=== PATIENT | female | born 1990 | race Caucasian/White ===

== ENCOUNTER 2017-10-08 10:10 | Inpatient (IN) | payer MEDICAID, SELFPAY ==
[2017-10-06 13:17] VITALS: BMI 27.5
[2017-10-06 15:08] LABS: Hematocrit 36.4 % (37-47); Hemoglobin 11.8 g/dl (12.0-15.0); Mean Corp Hgb Conc 32.4 g/gl (32-36); Mean Corpuscular Hgb 29.3 pg (27.0-32.0); Mean Corpuscular Volume 90.3 fL (81-99); Mean Platelet Vol. 10.7 fl (6.2-12.0); Platelet Count 193 K/mm3 (150-450); RBC Distribution Width CV 14.3 % (11.6-14.6); Red Blood Count 4.03 M/mm3 (4.2-5.4); White Blood Count 11.4 K/mm3 (4.4-11.0)
[2017-10-06 15:12] LABS: Scan Indicated on CBC? Y/N NO
[2017-10-08] VITALS (18 sets, daily range): BP systolic 94–116; BP diastolic 52–75; PULSE 77–98; RESP 12–20; TEMP 36.2–37; O2SAT 96–100
[2017-10-08] MEDS: Lactated Ringers 1,000 ML 999 ML IV (10:20)
[2017-10-08] MEDS: Lactated Ringers 1,000 ML 150 ML IV (11:26)
[2017-10-08 11:29] LABS: International Normalized Ratio 1.1; Partial Thromboplast Time 25.2 Seconds (24.1-36.2); Prothrombin Time (Protime)PT. 13.3 SECONDS (11.7-14.9)
[2017-10-08] MEDS: Sodium Citrate/Citric Acid 30 ML UDC PO (11:44)
[2017-10-08] MEDS: Clindamycin 900 MG/50 ML BAG 75 MG IV (12:04)
[2017-10-08] MEDS: Oxytocin 30 units/NS 500 ml 30 UNITS/500 ML IV.SOLN 167 UNITS IV (12:23)
--- NOTE | 2017-10-08 12:58 | OP.PCM_ITS ---
Delivery Classification: Scheduled Final LEENA: 10/14/17 Final LEENA Source: US <20 weeks Gestational age: 39 Weeks and 1 Days Indications: Previous delivery x 2 Description of Procedure: Normal appearing uterus, ovaries and fallopian tubes. Live male in vertex presentation. Apgars 8/9. Normal appearing placenta. Amniotic fluid clear. Amniotic Membrane Rupture Type: Artificial Amniotic Fluid Description: Clear Placenta Disposition: [facility] Drain: [place] to straight drain Fluids Replaced: 1500cc Cord Entanglement: None Cord Vessel Description: 3 Vessels Esitmated Blood Loss (ml): 400 Gender: Male (1 minute): 8 (5 minute): 9 Delayed cord clamping: Yes Pre-op Antibiotic Given: Clindamycin 600mg IV x1 and Gentamicin 1.5mg/kg IV x1 Pt instructed on risks of surgery: Bleeding, Infection, Failure Rate of 1 to 2% , Injury to surrounding structure(s) including bowel and bladder Complications: None - Admit VTE Documentation VTE Present on Admission: No VTE Mechan Device Prophylaxis: SCD's VTE Pharm Prophylaxis ordered?: No
--- NOTE | 2017-10-08 13:24 | FALS_PTH ---
PATIENT: JEROME ONTIVEROS LOC: [facility] U#:[id number] AGE/SX: 27/F ROOM: WP005 RE10/08/[address]: Dr. Ari Silva MD : 1990 BED: 1 DIS: 10/10/2017 SPEC #: [id number] RECD: 10/08/17 14:10 STATUS: LEON RESidney #: [id number] ALICIA: 10/08/17 13:[address]: Ari Silva DEPT: SURGICAL PATHOLOGY RECD BY: Susanna Payne ENTERED: 10/08/17 14:53 SP TYPE: FALL TUBES OTHR DR: Galina Primary Care Phys Tissues: Fallopian tube Procedures: Surgery Specimen Level II HEADER OPERATION: Tubal ligation PRE-OP DIAGNOSIS: Tubal ligation TISSUE SUBMITTED: Fallopian tubes MICROSCOPIC DIAGNOSIS Right and left fallopian tubes, bilateral partial salpingectomies: Complete segments of right and left fallopian tubes with no significant pathologic change. AM:babak 10/09/17 MICROSCOPIC DESCRIPTION Slides are reviewed. GROSS DESCRIPTION Received is one container labeled with the patient's name and designated suture in right. The specimen consists of two fallopian tubes including fimbrial ends. The right fallopian tube with suture measures 6.5 cm in length and 0.5 cm in diameter. The left fallopian tube measures 6 cm in length and 0.6 cm in diameter. Sections reveal unremarkable cut surfaces. School Photograph Editor sections are submitted in two cassettes as follows: 1 ? right fallopian tube, 2 ? left fallopian tube. / CHANTAL:babak 10/08/17 TC:5 CPT: 27217 x2
--- NOTE | 2017-10-08 15:24 | DCINST_ITS ---
Discharge Diet: No Restrictions Discharge Activity: Return to Normal Activity, May Not Drive, May not drive while taking narcotic pain medications., May Shower Return to work on:: 12/07/17 May shower in (days): 0 May resume sexual activity in: 4-6 weeks Call your doctor if your incision/area has: Sudden Increased Bleeding, Increased Pain/ Swelling, Increased Redness, Foul Smelling Discharge, Swelling at the incision site Call your doctor if you observe: Fever of 101 or Higher, Inability to urinate, Inability to have a bowel movement, Using more than one pad per hour, Shortness of breath, Swelling in the ankles, Chest pain, Calf discomfort, Uncontrolled pain Remove Dressing in (days):: 2 Cleanse incision/area with: Soap & Water Additional Instructions: If you experience any of the following, contact your healthcare provider. * Bleeding that soaks a pad every hour for 2 hours * Fever 100.4 or higher * Unrelieved incision or abdominal pain * Swelling, redness, discharge or bleeding from your incision or episiotomy site * Your incision begins to separate * Problems urinating (including inability to urinate or burning while urinating) . * Visual changes * Severe headache * Flu-like symptoms * Pain or redness in one of both of your breasts * Pain, warmth, tenderness or swelling in your legs, especially the calf area * Frequent nausea and vomiting * Symptoms of depression or anxiety If you experience any of the following, call 911 or go to the nearest Emergency Room. * Chest pain * Problems breathing * Seizure activity * Partial or complete paralysis of a body part, slurred speech, weakness or drooping of the face, or a sudden inability to walk or hold your balance Allergies/Adverse Reactions: Allergies divalproex sodium [From Depakote] Allergy (Verified 10/06/17 13:22) Hives Penicillins Allergy (Verified 10/06/17 13:22) Unknown rofecoxib [From Vioxx] Allergy (Verified 10/06/17 13:22) Other halucinations Sulfa (Sulfonamide Antibiotics) Allergy (Verified 10/06/17 13:22) Swelling topiramate [From Topamax] Adverse Reaction (Verified 10/06/17 13:22) Other agitation kale Allergy (Uncoded 10/06/17 13:22) Swelling pistachios Allergy (Uncoded 10/06/17 13:22) Swelling tomatoes Allergy (Uncoded 10/06/17 13:22) Hives Medications to take at Discharge Vits [Prenatabs FA ] 1 tablet PO DAILY 12/19/14 Cyclobenzaprine [Flexeril] 10 mg PO PRN PRN 10/06/17 Ibuprofen [Motrin] 800 mg PO TID PRN PRN 7 Days #30 tab 10/08/17 Oxycodone [Oxyir] 5 - 10 mg PO Q4H PRN PRN 7 Days #28 tab 10/08/17 The following prescriptions were given: Oxycodone [Oxyir] 5 - 10 mg PO Q4H PRN PRN 7 Days #28 tab PRN Reason: Mod-Severe Pain (-06/09) Ibuprofen [Motrin] 800 mg PO TID PRN PRN 7 Days #30 tab PRN Reason: Pain Follow-Up: Call to make an appointment with your doctor for an incision check in 1-2 weeks. You will also need a 6 week post- follow up appointment. Please Follow Up With: Ari Silva MD When: one week Primary Care Physician: Care Physician,No Primary [Primary Care Provider] - Proposed Discharge Date: 10/10/17
--- NOTE | 2017-10-08 15:24 | PCM.OPRPT ---
Problem List (1) Previous section complicating Status: Chronic (2) Encounter for sterilization Status: Chronic Report of Operation Date of Procedure: 10/08/17 Pre-Operative Diagnosis: Previous section x 2, Requests permanent sterilization Post-Operative Diagnosis: Same Surgery/Procedure Performed:: Repeaty low transverse section, bilateral salpingectomy Description of Surgical Findings:: Normal appearing uterus, ovaries, and fallopian tubes. Live male in vertex presentation. Amniotic fluid clear. Normal appearing placenta. Apgars 8/9. senior strategy analyst: Eliot Baez Type of Anesthesia:: Epidural Anesthesiologist: Danial Dyer Special Medications: none Specimen's removed: right and left fallopian tubes Drains: jones Estimated Blood Loss (mL): 400 Fluids Replaced: 1500cc Description of Procedure: Willa was taken tot he OR with IV running. She was given 900mg of clindamycin and gentamicin IV prior to her procedure. Spinal anesthesia was introduced without complication. She was then prepped and draped in the supine position with a leftward displacement. A jones catheter was placed without complication. Once anesthesia was deemed adequate a Pfannensteil skin incision was made over the previous scar. The underlying subcutaneous tissue was dissected down to the level of fascia using the Bovie cautery. The fascia was then incised inthe the midline. This incision was extended bilaterally with the Jeff scissors. The upper portion of the fascial defect was then grasped with two Mathew clamps elevated and the rectus muscles dissected off with sharp and blunt dissection. In a similar fashion the rectus muscles were dissected off the lower fascial defect. The rectus muscles were then in the midline, the peritoneum identified and entered sharply. The peritoneal defect was extended using sharp and blunt dissection.l A bladder blade was then placed. The cervicovesico peritoneum was then entered sharply and this incision was extended bilaterally. A bladder flap was then created wusing sharp and blunt dissection. The bladder blade was replaced. A transverse incision was then made in the lower uterine segement. Once entered, this defect was extended using blunt lateral and superior traction. The membranes were then ruptured with clear fluid noted. The baby's head was then delivered atraumatically followed by the body. The baby's nose and mouth were then suctioned with a bulb suction. Delayed cord clamping was employed. There was an active cry shortly after delivery. The cord was then clamped and cut. The baby was handed to the waiting nursing staff for evaluation. The placenta was removed manually and the uterus was exteriorized. The uterine cavity was cleared of all clot and membranes. The uterine incision was then closed in two layers with #1 Vicryl suture. The right fallopian tube was then grasped with a Gilmar clamp elevated. A rent was made in the mesosalpinx and the mseosalpinx was grasped with two Coni clamps. The mesosalpinx was then cut and suture ligated. The tube was then amputated at the cornua. In a similar fashion the left fallopian tube was removed. The posterior cul de sac and gutters were cleared of all clot and fluid. The uterus returned to the abdomen. All pedicle sites were inspected and found to be hemostatic. The peritoneum was then closed with 2-0 Vicryl. The rectus muscles were reapproximated with interrupted sutures of 0-Vicryl. The fascia was closed with a running stitch of #1 Stratofix suture. The subcutaneous tissue was closed with 2-0 Vicryl. The skin was closed in a subcuticular fashion with 4-0 Monocryl. Sponge lap and needle counts were correct. She was taken to the recovery room in stable condition. Grafts/Implants Used: none - Complications none - Admit VTE Documentation VTE Present on Admission: No VTE Mechan Device Prophylaxis: SCD's VTE Pharm Prophylaxis ordered?: No
[2017-10-08] MEDS: DiphenhydrAMINE 25 MG Capsule PO (16:55)
[2017-10-08] MEDS: Lactated Ringers 1,000 ML 100 ML IV (17:43)
[2017-10-08] MEDS: Clindamycin 600 MG/50 ML BAG 100 MG IV ×2 (18:05→23:37)
[2017-10-08] MEDS: Ketorolac 30 MG/ML Syringe IV (19:06)
[2017-10-08] MEDS: 0.9% Saline Lock 10 ML Syringe IV (19:06)
[2017-10-09] VITALS (9 sets, daily range): BP systolic 106–116; BP diastolic 57–71; PULSE 77–91; RESP 16–18; TEMP 36.5–37.2; O2SAT 97–99
[2017-10-09] MEDS: Ketorolac 30 MG/ML Syringe IV ×4 (00:54→22:26)
[2017-10-09] MEDS: Acetaminophen 500 MG Tablet 1000 MG PO (05:48)
[2017-10-09 07:17] LABS: Hematocrit 29.2 % (37-47); Hemoglobin 9.6 g/dl (12.0-15.0); Mean Corp Hgb Conc 32.9 g/gl (32-36); Mean Corpuscular Hgb 29.6 pg (27.0-32.0); Mean Corpuscular Volume 90.1 fL (81-99); Mean Platelet Vol. 10.5 fl (6.2-12.0); Platelet Count 146 K/mm3 (150-450); RBC Distribution Width CV 14.3 % (11.6-14.6); Red Blood Count 3.24 M/mm3 (4.2-5.4); Scan Indicated on CBC? Y/N NO; White Blood Count 10.4 K/mm3 (4.4-11.0)
--- NOTE | 2017-10-09 08:51 | PCM.PN.OB ---
Subjective: Some soreness at incision but overall doing well. Breast feeding. Bleeding light. Objective: Afeb VSS Hgb stable Urine output adequate - Physical Exam General: Alert, Oriented x3, Cooperative, No apparent distress Lungs: Clear to auscultation, Normal air movement Cardiovascular: Regular rate, Regular Rhythm Abdomen: Soft, Non-Distended, - - Fundus firm. Appropriate tenderness. Incision dressing dry. Extremities: No edema, No Calf Tenderness Skin: No rashes Psych/Mental Status: Normal Affect Comment: Lochia light Vital Signs Temp Pulse Resp BP Pulse Ox 97.7 F L 87 16 110/60 99 10/09/17 05:17 10/09/17 06:00 10/09/17 06:00 10/09/17 05:17 10/09/17 06:00 Oxygen Delivery Method Room Air Weight: 165 lb 9.074 oz Body Mass Index (BMI) 27.5 Intake and Output for Last 24 Hours 10/07/10/08/17 10/09/17 23:59 23:59 23:59 Intake Total 3476 / 3476 1988 / 1988 Output Total 900 / 900 1800 / 1800 Balance 2576 / 2576 189 / 189 Laboratory Tests Past 24 Hrs 10/08/17 10/09/17 11:09 06:55 WBC 10.4 RBC 3.24 L Hgb 9.6 L Hct 29.2 L MCV 90.1 MCH 29.6 MCHC 32.9 RDW 14.3 RDW Differential 47.0 H Plt Count 146 L MPV 10.5 PT 13.3 INR 1.1 APTT 25.2 Assessment/Plan Doing well on POD#1. Continue routine PO care.
[2017-10-09] MEDS: oxyCODONE 5 MG Tablet PO (20:03)
[2017-10-09] MEDS: 0.9% Saline Lock 10 ML Syringe IV (22:26)
[2017-10-10 01:45] VITALS: BP 113/60; PULSE 77; RESP 17; TEMP 36.4; O2SAT 94
[2017-10-10] MEDS: oxyCODONE 5 MG Tablet PO ×4 (01:47→18:10)
[2017-10-10] MEDS: 0.9% Saline Lock 10 ML Syringe IV (04:34)
[2017-10-10] MEDS: Ibuprofen 600 MG Tablet PO ×2 (04:44→14:41)
[2017-10-10 08:02] VITALS: BP 110/67; PULSE 91; RESP 16; TEMP 36.7; O2SAT 94
--- NOTE | 2017-10-10 08:16 | NURSING ---
PATIENT HAS 30-DAY EVENT MONITOR THAT WAS PRESCRIBED ON AN OUTPATIENT BASIS. NO REPORTS OF SHORTNESS OF BREATH, PALPITATIONS, OR CHEST PAIN AT THIS TIME. WILL CONTINUE TO MONITOR.
--- NOTE | 2017-10-10 09:37 | CASEMGMT ---
Social Work Note JUAN J reports to live with her spouse and two daughter's (ages 5 and 2.5 yrs). They rent a 4 bedroom farmhouse that is within 5 minutes of JUAN J's parents and grandparents. She identifies her primary supports as her spouse Naveed, and her mother. 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 She reports graduating high school and some college, denies issues with reading or writing. Confirms that they have necessary supplies for to return home including crib, car seat, clothes, diapers, and bottles. Denies issues obtaining supplies. 's human resource internship is Dr. Christal Sandy. JUAN J has not setup an appointment, but states she will. Other two children also go to Dr. Sandy and she knows how to contact her. Confirms access to transportation for appointments. Substance Abuse Hx and Current Pattern of Use: Alcohol: No Methamphetamine: No Tobacco: No Cocaine: No Marijuana: Yes Prescription Drugs: No Heroin: No Other: No Treatment? No MOB reports hx of marijuana use. Denies any use during this . Had a CSB case opened in the past for using during second early on. Educate to concerns with marijuana use while breast feeding and understanding expressed. No positive tox screen on admission. Mental Health Hx and Current Status: Diagnoses: PTSD, Anxiety, Panic DO Stressors: New baby, adjustment SI or HI? No Treatment: Yes When? Current Where? [facility] Medications: None JUAN J reports hx of mental health diagnoses as listed above. She goes to counseling at [facility] in [place]. Her last visit was in August d/t weather per her report. Denies hx of pp depression. Educate pt to pp depression and increased likelihood of experiencing with her mental health history. Review signs/symptoms and recommend seeking assistance from her OBGYN or counseling if symptoms begin to occur. She has already discussed medication options with Dr. Wall post for mood stabilization. Reports that she feels her mental health is well managed and her coping skills include crafting, reading poetry, and journaling. JUAN J has appropriate supports in place, no further needs identified. Resources: JFS:Medicaid, Applying for Food [place] Intervention: Assessment complete to identify needs. Education, support and resources provided to pt for [facility], as well as PP Depression education. JUAN J is linked with a counselor and already speaking with OBGYN regarding medication if needed. All supplies for infant are obtained and there is a safe environment to return to. No further needs and anticipate discharge this date. JACKIE PonceW
[2017-10-10] MEDS: Senna/Docusate Sodium 1 Tablet PO (11:24)
--- NOTE | 2017-10-10 12:15 | PCM.PN.OB ---
Subjective: Patient without complaints. Tolerating diet well but bowels still denies flatus. Would like to stay another day. - Physical Exam Vital Signs AF, VSS Temp Pulse Resp BP Pulse Ox 98.1 F 91 16 110/67 94 10/10/17 08:02 10/10/17 08:02 10/10/17 08:02 10/10/17 08:02 10/10/17 08:02 Oxygen Delivery Method Room Air Weight: 165 lb 9.074 oz Body Mass Index (BMI) 27.5 Intake and Output for Last 24 Hours 10/08/17 10/09/17 10/10/17 23:59 23:59 23:59 Intake Total 3476 / 3476 2727.2 / 2727.2 Output Total 900 / 900 3450 / 3450 Balance 2576 / 2576 -722.8 / -722.8 Wound is clean, dry, intact. Good urine output. Assessment/Plan Doing well. Encouraged to minimize use of narcotic pain medications. Continuing present care.
[2017-10-10 14:40] VITALS: BP 111/62; PULSE 86; RESP 14; TEMP 37
[2017-10-12 16:14] LABS: Pathology Specimen OB SEE PATHOLOGY REPORT
--- NOTE | 2017-10-14 12:00 | PCM.DC.SUM ---
Discharge Date and Diagnosis Date of Admission: 10/08/17 Date of Discharge: 10/10/17 - Primary Discharge Diagnosis s/p repeat C/S bilateral salpingectomy - Secondary Discharge Diagnosis Chronic Problems Previous section complicating (Chronic) Encounter for sterilization (Chronic) Hospital Course and Treatment Operations: - - Repeat LTCS, bilateral salpingectomy Summary of Care Provided: The patient is a 27 year old F [admitted for scheduled term repeat C/S and bilateral salpingectomy. These were performed without complication with delivery of a live without complication. Post operative course unremarkable. Discharged home on POD#2.] Discharge Diet: No Restrictions Discharge Activity: Return to Normal Activity, May Not Drive, May not drive while taking narcotic pain medications., May Shower Return to work on:: 12/07/17 May shower in (days): 0 May resume sexual activity in: 4-6 weeks Call your doctor if your incision/area has: Sudden Increased Bleeding, Increased Pain/ Swelling, Increased Redness, Foul Smelling Discharge, Swelling at the incision site Call your doctor if you observe: Fever of 101 or Higher, Inability to urinate, Inability to have a bowel movement, Using more than one pad per hour, Shortness of breath, Swelling in the ankles, Chest pain, Calf discomfort, Uncontrolled pain Remove Dressing in (days):: 2 Cleanse incision/area with: Soap & Water Home Medications: Medications to take at Discharge Vits [Prenatabs FA ] 1 tablet PO DAILY 12/19/14 Cyclobenzaprine [Flexeril] 10 mg PO PRN PRN 10/06/17 Ibuprofen [Motrin] 800 mg PO TID PRN PRN 7 Days #30 tab 10/08/17 Oxycodone [Oxyir] 5 - 10 mg PO Q4H PRN PRN 7 Days #28 tab 10/08/17 Following Prescrptions Were Given to Patient: Oxycodone [Oxyir] 5 - 10 mg PO Q4H PRN PRN 7 Days #28 tab PRN Reason: Mod-Severe Pain (4-10/10) Ibuprofen [Motrin] 800 mg PO TID PRN PRN 7 Days #30 tab PRN Reason: Pain Primary Care Physician: Care Physician,No Primary [Primary Care Provider] - Please Follow Up With: Ari Silva MD When: one week Disposition: Home Minutes spent on discharge:: 15 Patient Condition:: Good Meaningful Use Info Meaningful Use Diagnoses (Choose all that apply): None applicable
== END 2017-10-10 19:20 | disposition home or self-care (01) | DRG 371 ==
PROVIDERS: Admitting Provider Obstetrics & Gynecology; Visit Provider Obstetrics & Gynecology
DX: O34.211 Maternal care for low transverse scar from previous cesarean delivery (principal); F32.9 Major depressive disorder, single episode, unspecified; O99.344 Other mental disorders complicating childbirth; J45.909 Unspecified asthma, uncomplicated; Z30.2 Encounter for sterilization; Z79.899 Other long term (current) drug therapy; Z3A.39 39 weeks gestation of pregnancy; Z37.0 Single live birth
CPT/HCPCS: 85027; 85610; 85730; 86850; 86900; 88302; 99218; J7120; 90686; A4216; G0378

== ENCOUNTER → 2017-12-22 09:10 | Outpatient (CLI) | payer MEDICAID, SELFPAY ==
[2017-12-22 09:52] LABS: ALB/GLOB Ratio 1.5 RATIO (0.9-2.4); AST(SGOT) 11 U/L (15-37); Alanine Aminotransfer ALT/SGPT 20 U/L (13-56); Albumin, Serum 4.4 g/dL (3.2-5.0); Alkaline Phosphatase 78 U/L (45-117); Anion Gap 6 (5-15); BUN 15 mg/dL (7-18); BUN/Creat Ratio 21.1 RATIO (10-20); Calcium,Total 8.7 mg/dL (8.5-10.1); Chloride 106 mmol/L (98-107); Creatinine, Serum 0.71 mg/dL (0.55-1.02); EST Glomerular Filtration Rate 103 mL/min (>60); Est Glom Filt Rate - Afr Amer 125 mL/min (>60); Globulin 2.9 g/dL (2.2-4.2); Glucose 88 mg/dL (74-106); Protein, Total 7.3 g/dL (6.4-8.2); Sodium Level 140 mmol/L (136-145)
[2017-12-22 09:58] LABS: hCG Titer Quant., Serum < 1 mIU/mL (<9 non-preg)
[2017-12-22 10:05] LABS: Hematocrit 39.5 % (37-47); Hemoglobin 12.6 g/dl (12.0-15.0); Mean Corp Hgb Conc 31.9 g/gl (32-36); Mean Corpuscular Hgb 28.1 pg (27.0-32.0); Mean Platelet Vol. 10.5 fl (6.2-12.0); Platelet Count 232 K/mm3 (150-450); RBC Distribution Width CV 13.7 % (11.6-14.6); RBC Distribution Width SD 43.4 fl (35.1-43.9); Red Blood Count 4.49 M/mm3 (4.2-5.4); White Blood Count 6.9 K/mm3 (4.4-11.0)
[2017-12-22 10:06] LABS: Scan Indicated on CBC? Y/N NO
--- NOTE | 2017-12-22 18:09 | PCM.TILTTABL ---
- Staff Staff: Marie Ferrer, - - Bonny Eddy - Summary Pre Test Resting HR: 66 - Alert and oriented: Warm and dry Pre Test Resting BP: 127/61 - Alert and oriented: Warm and dry Minimum Test HR: 75 - Alert and oriented: Warm and dry Maximum Test HR: 118 - Alert and oriented: Warm and dry Minimum Test BP: 114/74 - Alert and oriented: Warm and dry Maximum Test BP: 130/69 - Alert and oriented: Warm and dry Reason for Test Termination: Reached Maximum Test Time Physician Tilt Table Report - Patient's Physicians Primary Care Physician: Nikky Chowdary Heel Gummer: Dutch Doherty Indications/Diagnosis: Syncope Procedure Comments: The patient was brought to the tilt table laboratory and laid supine on the tilt table. The patient was alert and oriented and warm and dry. The baseline heart rate was 66 bpm with a baseline blood pressure 127/61 mmHg. The cardiac rhythm was normal sinus rhythm. The patient was placed in the 70 degree upright tilt table position for approximately 30 minutes. The patient remained alert and oriented and warm and dry. Minimal heart rate was 75 bpm with a minimal blood pressure of 114/74 mmHg with a maximal heart rate of 118 bpm and a maximal blood pressure of 130/66 mmHg. The cardiac rhythm was noted to demonstrate sinus rhythm as well as episodes appearing compatible with an underlying ectopic atrial rhythm and T wave abnormalities with notation of subsequent T wave inversion in leads II, III, aVF, and V3 through V6 with an isolated PVC with subsequent return to baseline in recovery. The patient had a variety of complaints during the head up tilt table examination with respect to feeling chest discomfort, shortness of breath, fatigue, lightheadedness, warmth, flushing, and chills. The patient did not lose consciousness. The patient was returned to the supine position. The patient remained alert and oriented and warm and dry. The concluding heart rate was 76 bpm with a concluding blood pressure 104/74 mmHg. The patient returned to baseline status prior to release from the tilt table laboratory. Summary: 70 degrees upright tilt table study stranding a combination of symptoms potentially compatible with vasovagal symptomatology however, considered negative for reproducible vasovagal/neurocardiogenic syncope.
[2017-12-22 18:18] VITALS: BP 114/74; BP 127/61; BP 130/69
--- NOTE | 2017-12-22 18:19 | TILTTABLE_ITS ---
- Staff Staff: Marie Ferrer, - - Bonny Eddy - Summary Pre Test Resting HR: 66 - Alert and oriented: Warm and dry Pre Test Resting BP: 127/61 - Alert and oriented: Warm and dry Minimum Test HR: 75 - Alert and oriented: Warm and dry Maximum Test HR: 118 - Alert and oriented: Warm and dry Minimum Test BP: 114/74 - Alert and oriented: Warm and dry Maximum Test BP: 130/69 - Alert and oriented: Warm and dry Reason for Test Termination: Reached Maximum Test Time Physician Tilt Table Report - Patient's Physicians Primary Care Physician: Nikky Chowdary Neonatal Intensive Care Nurse: Dutch Doherty Indications/Diagnosis: Syncope Procedure Comments: The patient was brought to the tilt table laboratory and laid supine on the tilt table. The patient was alert and oriented and warm and dry. The baseline heart rate was 66 bpm with a baseline blood pressure 127/61 mmHg. The cardiac rhythm was normal sinus rhythm. The patient was placed in the 70 degree upright tilt table position for approximately 30 minutes. The patient remained alert and oriented and warm and dry. Minimal heart rate was 75 bpm with a minimal blood pressure of 114/74 mmHg with a maximal heart rate of 118 bpm and a maximal blood pressure of 130/ 66 mmHg. The cardiac rhythm was noted to demonstrate sinus rhythm as well as episodes appearing compatible with an underlying ectopic atrial rhythm and T wave abnormalities with notation of subsequent T wave inversion in leads II, III , aVF, and V3 through V6 with an isolated PVC with subsequent return to baseline in recovery. The patient had a variety of complaints during the head up tilt table examination with respect to feeling chest discomfort, shortness of breath, fatigue, lightheadedness, warmth, flushing, and chills. The patient did not lose consciousness. The patient was returned to the supine position. The patient remained alert and oriented and warm and dry. The concluding heart rate was 76 bpm with a concluding blood pressure 104/74 mmHg. The patient returned to baseline status prior to release from the tilt table laboratory. Summary: 70 degrees upright tilt table study stranding a combination of symptoms potentially compatible with vasovagal symptomatology however, considered negative for reproducible vasovagal/neurocardiogenic syncope.
== END ==
PROVIDERS: Visit Provider Nurse Practitioner Acute Care
DX: R42 Dizziness and giddiness (principal)
CPT/HCPCS: 36415; 80053; 84702; 85027; 93660; J7030; A4216

== ENCOUNTER → 2018-10-21 09:35 | Outpatient (CLI) | payer MEDICAID, SELFPAY ==
--- NOTE | 2018-10-21 09:41 | MRI_ITS ---
STUDY: MRI CERVICAL SPINE WITHOUT CONTRAST REASON FOR EXAM: Female, 28 years old. paresthesia, pain , tremor, vertigo,falling. TECHNIQUE: Standardized fat and water weighted pulse sequences were obtained in the sagittal and axial planes. COMPARISON: None FINDINGS: Normal foramen magnum and brainstem-cervical cord junction. Normal craniovertebral junction. Normal anterior atlantoaxial articulation. Normal odontoid process. There is straightening of the normal cervical lordosis. C2-3: Normal endplates. Normal disc height, signal and morphology. Normal central canal and intervertebral neural foramina. C3-4: There is minimal disc space narrowing and endplate spondylosis. There is no significant disc herniation, central canal or foraminal stenosis. C4-5: There is mild disc space narrowing and endplate spondylosis. There is no significant disc herniation, central canal stenosis. Uncovertebral arthropathy with mild right and mild left foraminal stenosis. C5-6: There is minimal disc space narrowing and endplate spondylosis. There is no significant disc herniation, central canal or foraminal stenosis. C6-7: There is minimal disc space narrowing and endplate spondylosis. There is no significant disc herniation, central canal or foraminal stenosis. C7-T1: Normal endplates. Normal disc height, signal and morphology. Normal central canal and intervertebral neural foramina. Normal cervical cord. Normal visualized soft tissue structures. MRI/Spine Cervical (Routine) IMPRESSION: Mild degenerative changes. Electronically Signed: Jacqueline Wood MD at 10:07 EST Tel , Service support ,
== END ==
PROVIDERS: Referring Provider Clinical Nurse Specialist Acute Care; Visit Provider Clinical Nurse Specialist Acute Care
DX: R20.2 Paresthesia of skin (principal); R52 Pain, unspecified; R25.1 Tremor, unspecified
CPT/HCPCS: 72141

== ENCOUNTER → 2019-01-25 11:47 | Outpatient (CLI) | payer MEDICAID, SELFPAY ==
[2017-12-31 16:27] VITALS: BMI 23.3
[2019-01-25 14:10] LABS: Chlamydia Trachomatis by PCR Negative (Negative); Neisserai gonorrhoeae by PCR Negative (Negative); Probe Check PASS; Sample Adequacy Control PASS; Specimen Processing Control PASS
== END ==
PROVIDERS: Visit Provider Obstetrics & Gynecology
DX: R30.0 Dysuria (principal)
CPT/HCPCS: 87086; 87088; 87491; 87591

== ENCOUNTER → 2019-02-01 10:11 | Outpatient (CLI) | payer MEDICAID, SELFPAY ==
[2019-02-01 12:34] LABS: Chlamydia Trachomatis by PCR Negative (Negative); Neisserai gonorrhoeae by PCR Negative (Negative); Probe Check PASS; Sample Adequacy Control PASS; Specimen Processing Control PASS
== END ==
PROVIDERS: Visit Provider Obstetrics & Gynecology
DX: Z11.3 Encounter for screening for infections with a predominantly sexual mode of transmission (principal)
CPT/HCPCS: 87491; 87591

== ENCOUNTER → 2019-03-23 14:18 | Outpatient (CLI) | payer MEDICAID, SELFPAY ==
[2017-12-31 16:27] VITALS: BMI 23.3
[2019-03-29 14:04] LABS: HPV Reflexed? NOT INDICATED
== END ==
PROVIDERS: Visit Provider Obstetrics & Gynecology
DX: Z12.4 Encounter for screening for malignant neoplasm of cervix (principal)
CPT/HCPCS: 87624; 88175; G0145

== ENCOUNTER → 2019-04-01 10:58 | Outpatient (CLI) | payer MEDICAID, SELFPAY ==
--- NOTE | 2019-04-01 11:00 | BI_ITS ---
MAMMOGRAPHY - BILATERAL SCREENING REASON FOR EXAM: Female, 29 years old. Routine annual screening examination. PERTINENT HISTORY: Mother with breast cancer. Grandmother with breast cancer. TECHNIQUE: Digital bilateral breast jorge (3D mammographic acquisition) in the CC and MLO projections. 2-D mediolateral oblique (MLO) and craniocaudad (CC) views of both breasts were obtained. CAD: Full Field Digital Mammography with Computer Added Detection was performed. COMPARISON: None. Baseline examination. FINDINGS: Breast Composition: The breasts are heterogeneously dense, which may obscure small masses. There are no dominant masses or suspicious calcifications. Small bilateral benign appearing axillary lymph nodes. No other significant abnormalities are identified. BI/SCREEN MAMM (CAD) W/JORGE BILAT IMPRESSION: Negative screening mammogram. Yearly followup mammogram recommended. (A) ASSESSMENT CATEGORY: BIRADS Category 2: Benign. A letter regarding these results will be sent to the patient by the facility within 30 days. Approximately 10% of breast cancers are not detected by mammography. A normal mammogram should not delay biopsy of a clinically suspicious abnormality. [id number] Electronically Signed: Pedro Luis Yepez, at 13:30 EDT , Service support ,
== END ==
PROVIDERS: Referring Provider Obstetrics & Gynecology; Visit Provider Obstetrics & Gynecology
DX: Z12.31 Encounter for screening mammogram for malignant neoplasm of breast (principal); Z80.3 Family history of malignant neoplasm of breast
CPT/HCPCS: 77063; 77067

== ENCOUNTER → 2019-04-29 11:25 | Outpatient (REF) | payer MEDICAID, SELFPAY ==
[2019-04-29 10:21] VITALS: BMI 20.9
== END ==
LOC: CVS 11:25
PROVIDERS: Referring Provider Internal Medicine Cardiovascular Disease; Visit Provider Internal Medicine Cardiovascular Disease
DX: R42 Dizziness and giddiness (principal); R55 Syncope and collapse
CPT/HCPCS: 93270

== ENCOUNTER → 2019-04-29 11:55 | Outpatient (CLI) | payer MEDICAID, SELFPAY ==
[2019-04-29 10:21] VITALS: BMI 20.9
[2019-04-29 12:36] LABS: Absolute Lymphocyte Count 1.43 X10^3/uL (0.83-4.51); Absolute Neutrophil Count 4.8 X10^3/uL (2.0-7.7); Basophil# 0.04 X10^3/uL; Basophil% 0.6 % (0-1); Eosinophil# 0.09 X10^3/uL; Eosinophils% 1.3 % (0-5); Hematocrit 42.1 % (37-47); Hemoglobin 13.3 g/dL (12.0-15.0); Lymphocyte # 1.43 X10^3/ul (4.0); Lymphocyte % 20.9 % (19-41); Mean Corp Hgb Conc 31.6 g/dL (32-36); Mean Corpuscular Hgb 29.4 pg (27.0-32.0); Mean Corpuscular Volume 92.9 fL (81-99); Mean Platelet Vol. 10.9 fl (6.2-12.0); Monocyte# 0.52 X10^3/uL; Monocyte% 7.6 % (0-10); NRBC Flagged by Analyzer 0 % (0-5); Neutrophil # 4.75 X10^3/uL (2.7-7.7); Neutrophil % 69.5 % (47-70); Platelet Count 230 K/mm3 (150-450); RBC Distribution Width CV 12.7 % (11.6-14.6); RBC Distribution Width SD 43.3 fl (35.1-43.9); Red Blood Count 4.53 M/mm3 (4.2-5.4); White Blood Count 6.8 K/mm3 (4.4-11.0)
[2019-04-29 13:15] LABS: Anion Gap 8 (5-15); BUN 7 mg/dL (7-18); BUN/Creat Ratio 10.6 RATIO (10-20); Calcium,Total 8.7 mg/dL (8.5-10.1); Chloride 108 mmol/L (98-107); Creatinine, Serum 0.66 mg/dL (0.55-1.02); EST Glomerular Filtration Rate 112 mL/min (>60); Est Glom Filt Rate - Afr Amer 135 mL/min (>60); Glucose 82 mg/dL (74-106); Magnesium 2.4 mg/dL (1.6-2.6); Potassium 3.9 mmol/L (3.5-5.1); Sodium Level 143 mmol/L (136-145)
== END ==
PROVIDERS: Referring Provider Internal Medicine Cardiovascular Disease; Visit Provider Internal Medicine Cardiovascular Disease
DX: R55 Syncope and collapse (principal); R42 Dizziness and giddiness; N92.0 Excessive and frequent menstruation with regular cycle; D64.9 Anemia, unspecified; R07.9 Chest pain, unspecified; R06.09 Other forms of dyspnea
CPT/HCPCS: 36415; 80048; 83735; 85025

== ENCOUNTER → 2019-05-13 12:09 | Outpatient (CLI) | payer MEDICAID, SELFPAY ==
[2019-05-13 11:16] VITALS: BMI 20.2
[2019-05-13 13:46] LABS: T4 Total, Thyroxin 9.9 ug/dL (4.8-13.9); Thyroid Stim Hormone (TSH) 1.45 uIU/mL (0.358-3.74)
== END ==
PROVIDERS: Referring Provider Internal Medicine Cardiovascular Disease; Visit Provider Internal Medicine Cardiovascular Disease
DX: R06.09 Other forms of dyspnea (principal); R55 Syncope and collapse; R00.2 Palpitations
CPT/HCPCS: 36415; 84436; 84443

== ENCOUNTER → 2019-06-02 09:48 | Outpatient (CLI) | payer MEDICAID, SELFPAY ==
[2019-05-13 11:16] VITALS: BMI 20.2
[2019-05-27 10:21] VITALS: BMI 21.2
--- NOTE | 2019-06-02 09:50 | ECHOD_ITS ---
Reason For Study: PALPITATIONS Procedure This was a 2D Doppler, Color Flow transthoracic echocardiogram. Exam performed in department. Left Ventricle Normal size and thickness. The estimated ejection fraction is 65 %. Normal diastology for age. No regional wall motion abnormalities noted. Right Ventricle Normal size and thickness. Normal systolic function. Atria Normal left atrium. Normal right atrium. Normal atrial septum. Mitral Valve The mitral valve is structurally normal. No prolapse or stenosis seen. Tricuspid Valve Normal tricuspid valve. Unable to estimate RV systolic pressure due to insufficient tricuspid regurgitant envelope. Aortic Valve Normal aortic valve. Trisinus/trileaflet aortic valve. Pulmonic Valve Normal pulmonic valve. Great Vessels Normal aortic root. Normal arch. Normal inferior vena cava. Inferior vena cava collapse with sniff. Pericardium/Pleural No pericardial effusion. MMode/2D Measurements & Calculations LVIDd: 4.7 cm IVSd: 0.75 cm Ao root diam: 2.2 cm LVIDs: 3.2 cm LVPWd: 0.71 cm RVDd: 2.6 cm FS: 32.5 % LAV(MOD-bp): 33.3 ml LA A4 area: 13.0 cm2 LA dimension(2D): 2.3 cm LAV(MOD-bp) Indexed: 20.3 ml/m2 LAV(MOD-sp2): 36.5 ml LAV(MOD-sp4): 28.8 ml RA A4 area: 11.1 cm2 Time Measurements MV dec time: 0.20 sec Doppler Measurements & Calculations MV E max charly: 89.3 cm/sec Lat Peak E' Charly: 18.0 cm/sec Med Peak E' Charly: 13.2 cm/sec MV A max charly: 40.8 cm/sec E/E' lat: 5.0 E/E' med: 6.8 MV E/A: 2.2 Ao V2 max: 121.8 cm/sec LV V1 max: 99.2 cm/sec PA V2 max: 85.3 cm/sec Ao max P.9 mmHg LV V1 max P.9 mmHg Interpretation Summary The estimated ejection fraction is 65 %. Normal diastology for age. Unable to estimate RV systolic pressure due to insufficient tricuspid regurgitant envelope. Compared to echo report dated 09/16/2017, no appreciable changes noted. Ordering Physician: Juan Manuel Turpin Referring Physician: NO PCP Performed By: Kim Rodriguez, GUSTAVO, RVT
== END ==
PROVIDERS: Referring Provider Internal Medicine Cardiovascular Disease; Visit Provider Internal Medicine Cardiovascular Disease
DX: R00.2 Palpitations (principal)
CPT/HCPCS: 93306

== ENCOUNTER → 2019-06-20 20:13 | Outpatient (CLI) | payer MEDICAID, SELFPAY ==
[2019-05-27 10:21] VITALS: BMI 21.2
== END ==
PROVIDERS: Referring Provider Internal Medicine Cardiovascular Disease; Visit Provider Internal Medicine Cardiovascular Disease
DX: G47.10 Hypersomnia, unspecified (principal); R40.0 Somnolence
CPT/HCPCS: 95810

== ENCOUNTER → 2019-06-22 15:11 | Outpatient (CLI) | payer MEDICAID, SELFPAY ==
[2019-05-27 10:21] VITALS: BMI 21.2
== END ==
PROVIDERS: Visit Provider Obstetrics & Gynecology
DX: N39.0 Urinary tract infection, site not specified (principal)
CPT/HCPCS: 87086; 87088